=== PATIENT | male | born 1980 | race Two or more races ===

== ENCOUNTER 2019-08-07 11:34 | Emergency (ER) | payer MEDICAID ==
[~2019-08-07] VITALS: Ht 165.1 cm; Wt 92.4 kg
[2019-08-07 11:47] VITALS: BP 147/96
--- NOTE | 2019-08-07 14:04 | NUR ---
PER PREVIOUS RN, ATTEMPT TO DC AND PT REQUESTS MD VISIT. AWAITING DR KODY CROCKETT.
== END 2019-08-07 14:50 | disposition home or self-care (01) ==
LOC: ED 14:30
DX: H66.002 Acute suppurative otitis media without spontaneous rupture of ear drum, left ear (principal); R05 Cough; R09.81 Nasal congestion
CPT/HCPCS: 99283